=== PATIENT | female | born 1975 | race Caucasian/White ===

== ENCOUNTER 2025-02-27 12:45 | Emergency (ER) | payer BC ==
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
[2025-02-27 13:07] VITALS: TEMP 97.3
[2025-02-27] MEDS ORDERED: MORPHINE SULFATE 2 MG INJ ONE (14:08)
[2025-02-27] MEDS ORDERED: Zofran 4 MG/2 ML VIAL ONE (14:08)
[2025-02-27] MEDS: MORPHINE SULFATE 2 MG INJ IV ONE (14:09)
[2025-02-27] MEDS: Zofran 4 MG/2 ML VIAL IV ONE (14:09)
[2025-02-27 14:18] LABS: BASOPHIL % 0.2 % (0.1-1.2); Basophil (Absolute #) 0.04 x10^3/uL (0.01-0.08); Eosinophil (Absolute #) 0.06 x10^3/uL (0.04-0.36); Hematocrit 42.5 % (34.1-44.9); Hemoglobin 14.6 g/dL (11.2-15.7); IMMATURE GRAN # 0.18 x10^3u/L (0.001-0.031); IMMATURE GRAN % 1.0 % (0.001-0.429); Lymphocyte (Absolute #) 2.24 x10^3/uL (1.18-3.74); Mean Corpuscular Hemoglobin 31.0 pg (25.6-32.2); Mean Corpuscular Hgb Concent. 34.4 g/dL (32.2-35.5); Monocyte (Absolute #) 0.81 x10^3/uL (0.24-0.86); NUCLEATED RBC # 0.00 x10^3u/L (0.00-0.012); NUCLEATED RBC % 0.0 % (0.00-0.2); Platelet Count 313 x10^3/uL (182-369); Red Blood Count 4.71 x10^6/uL (3.93-5.22); White Blood Count 18.4 x10^3/uL (3.98-10.04)
[2025-02-27 14:39] LABS: Calcium 9.3 mg/dL (8.4-10.2); Carbon Dioxide 25 mmol/L (22-30); Creatinine 1 0.82 mg/dL (0.52-1.04); EST GLOMERULAR FILTRATION RATE 87.6 ML/MIN; ETHYL ALCOHOL < 10 mg/dL (0-10); Glucose 94 mg/dL (74-106); Potassium 3.5 mmol/L (3.5-5.1); SGOT/AST 36 U/L (14-36); SGPT/ALT 23 U/L (0-35); Total Protein 7.3 g/dL (6.3-8.2)
[2025-02-27 16:04] VITALS: O2SAT 99
[2025-02-27 17:09] VITALS: RESP 22
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
[2025-02-27 17:57] LABS: Glucose, Urine Negative (Negative); Protein,Urine Dip Negative (Negative); WBC 0-2 /HPF (0-5)
[2025-02-27 18:07] VITALS: BP 120/70; PULSE 78
[2025-02-27 18:09] LABS: Amphetamine,Urine NEGATIVE (NEGATIVE); Barbiturate,Urine NEGATIVE (NEGATIVE); Benzodiazepine,Urine NEGATIVE (NEGATIVE); Cocaine,Urine NEGATIVE (NEGATIVE); Methadone,Urine NEGATIVE (NEGATIVE); Opiate,Urine POSITIVE (NEGATIVE); PCP,Urine NEGATIVE (NEGATIVE); THC,Urine NEGATIVE (NEGATIVE)
[2025-02-27] MEDS ORDERED: PERCOCET TABLET 5/325MG ONE (18:15)
[2025-02-27] MEDS: PERCOCET TABLET 5/325MG PO STA (18:20)
[2025-02-27] MEDS ORDERED: Norflex 100 MG Tablet PO ONE (18:32)
[2025-02-27] MEDS: Norflex 100 MG Tablet PO ONE (18:37)
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
== END 2025-02-27 18:47 | disposition home or self-care (01) ==
LOC: ED 12:45
DX: S00.03XA Contusion of scalp, initial encounter (principal); S22.080A Wedge compression fracture of T11-T12 vertebra, initial encounter for closed fracture; M51.369 Other intervertebral disc degeneration, lumbar region without mention of lumbar back pain or lower extremity pain; V49.40XA Driver injured in collision with unspecified motor vehicles in traffic accident, initial encounter; Y99.0 Civilian activity done for income or pay; R51.9 Headache, unspecified; M54.2 Cervicalgia; M54.50 Low back pain, unspecified; M79.652 Pain in left thigh; M79.662 Pain in left lower leg; Z79.899 Other long term (current) drug therapy